=== PATIENT | female | born 1975 | race Caucasian/White ===

== ENCOUNTER 2016-07-09 06:57 | Emergency (ER) | payer OTHER ==
[~2016-07-09] VITALS: Ht 157.5 cm; Wt 55.0 kg
[~2016-07-09 06:57] MED LIST: ANTIVERT25 MG PO; BENTYL10 MG PO; CIPRO500 MG PO; CLONAZEPAM1 MG PO; DILAUDID2 MG PO; DITROPAN5 MG PO; ELMIRON100 MG PO; FIORICET; FIORICET 50-301 EACH PO; FLOVENT 11120 INHALA IH; HYDROCHLOROTHIA25 MG PO; HYDROCODON-ACE1 EAC7 PO; IMITREX; IMITREX50 MG PO; IMITREX6 MG/0.52 SC; INDERAL10 MG PO; KEFLEX500 MG PO; KLONOPIN0.5 M1 PO; LYRICA75 MG PO; MACROBID100 MG PO; NORCO 5/3251 TABLET PO; NSAID; PANTOPRAZOLE SO40 MG PO; PERCOCET 5/31 TABLET PO; PHENERGAN25 MG PR; PREDNISONE20 MG PO; PROAIR HFA8.5 GM IH; PROMETHAZINE HC50 M1 PO; PROVENTIL HFA6.7 GM IH; PROVENTIL,VENTOL2 MG PO; PYRIDIUM100 MG PO; REGLAN5 MG PO; SYMBICORT60 INHALAT IH; TOPAMAX100 MG PO; TORADOL10 MG PO; URIBEL CAPSULE1 EACH PO; ZITHROMAX Z-PA250 MG PO; ZOFRAN4 MG PO
[2016-07-09 08:05] LABS: BASOPHIL COUNT 0.1 K/uL (0-0.1); EOSINOPHIL (%) 1.2 % (0-5); EOSINOPHIL COUNT 0.1 K/uL (0-0.3); HEMATOCRIT 40.9 % (36.0-46.0); IMMATURE GRANULOCYTE (%) 0.4 % (0.0-0.7); INSTRUMENT ABS NEUTROPHIL CT 3.9 K/uL; LYMPHOCYTE COUNT 2.3 K/uL (1.0-2.8); MCH 29.5 PG (29.0-34.0); MCHC 34.5 G/DL (30.0-36.0); MCV 85.6 FL (83-99); MEAN PLAT.VOLUME 10.8 uM^3 (9.5-12.4); MONOCYTE (%) 8.3 % (3-12); MONOCYTE COUNT 0.6 K/uL (0-0.8); NEUTROPHIL (%) 56.4 % (45-76); NEUTROPHIL COUNT 3.9 K/uL (1.8-6.4); PLATELET COUNT 251 K/uL (156-360); RBC DIS.WIDTH-CV 12.5 % (11.8-14.6); RBC DIS.WIDTH-SD 38.9 % (39-53); RED BLOOD COUNT 4.78 M/uL (3.80-5.20); WHITE BLOOD COUNT 6.9 K/uL (4.1-10.2)
[2016-07-09 08:09] LABS: ADD MIUA? YES; BILIRUBIN NEGATIVE; BLOOD MODERATE; COLOR YELLOW ((YELLOW)); GLUCOSE (STRIP) NEGATIVE; KETONES NEGATIVE; LEUKOCYTES MODERATE; NITRITE NEGATIVE; PROTEIN (STRIP) 100; SPECIFIC GRAVITY 1.021 (1.000-1.030); UROBILINOGEN 0.2 MG/DL (0.2-1.0)
[2016-07-09 08:30] LABS: CHLORIDE 112 mEq/L (99-109)
[2016-07-09 08:31] LABS: POTASSIUM 2.7 mEq/L (3.7-5.4); SODIUM 138 mEq/L (136-147)
[2016-07-09 08:32] LABS: GLUCOSE 78 mg/dL (70-99)
[2016-07-09 08:34] LABS: ANION GAP 8 MEQ/L (2-14)
[2016-07-09 08:36] LABS: GFR ESTIMATE (CALCULATED) > 59 mL/min/
[2016-07-09 08:37] LABS: UREA NITROGEN (BUN) 8 mg/dL (9-23)
[2016-07-09 08:45] LABS: BACTERIA 1+ /HPF; CALCIUM OXALATE CRYSTALS NONE SEEN /HPF; CASTS PRESENT /LPF; CRYSTALS PRESENT; EPITHELIAL CELLS 1+ /HPF; HYALINE CASTS 0-5 /LPF; MUCUS 1+ /LPF
[2016-07-09] MEDS ORDERED: CIPRO500 MG PO (09:49)
[2016-07-09] MEDS ORDERED: K-DUR20 MEQ PO (09:49)
[2016-07-09] MEDS ORDERED: TYLENOL WITH C1 EACH PO (09:49)
[2016-07-09 10:02] VITALS: BP 105/64
== END 2016-07-09 10:03 | disposition home or self-care (01) ==
LOC: EME 06:57
PROVIDERS: Emergency Medicine
DX: N39.0 Urinary tract infection, site not specified (principal); E87.6 Hypokalemia; Z87.442 Personal history of urinary calculi; R56.9 Unspecified convulsions
CPT/HCPCS: 74176; 80048; 81003; 85025; 99281; 99284

== ENCOUNTER 2016-08-16 07:39 | Day surgery (SDC) | payer OTHER ==
[~2016-08-16] VITALS: Ht 157.5 cm; Wt 56.2 kg
[~2016-08-16 07:39] MED LIST changes: +CONCERTA36 MG PO; +IMITREX100 MG PO; +K-DUR20 MEQ PO; +KLONOPIN1 MG PO; +LORTAB 5-325 M1 EACH PO; +LYRICA150 MG PO; +TYLENOL WITH C1 EACH PO
== END 2016-08-16 09:25 | disposition home or self-care (01) ==
LOC: PAIN 07:39 → SDC 09:00 → PAIN 09:25
DX: M47.816 Spondylosis without myelopathy or radiculopathy, lumbar region (principal); F41.9 Anxiety disorder, unspecified; G89.29 Other chronic pain; M47.812 Spondylosis without myelopathy or radiculopathy, cervical region; R10.30 Lower abdominal pain, unspecified; I45.6 Pre-excitation syndrome
CPT/HCPCS: J1030; J2250; J3010; S0020

== ENCOUNTER 2016-08-23 07:41 | Day surgery (SDC) | payer OTHER ==
[~2016-08-23] VITALS: Ht 157.5 cm; Wt 56.2 kg
== END 2016-08-23 10:00 | disposition home or self-care (01) ==
LOC: PAIN 07:41 → SDC 09:00 → PAIN 10:00
DX: M47.816 Spondylosis without myelopathy or radiculopathy, lumbar region (principal); M54.5 Low back pain; G89.29 Other chronic pain; M47.812 Spondylosis without myelopathy or radiculopathy, cervical region; J44.9 Chronic obstructive pulmonary disease, unspecified; K21.9 Gastro-esophageal reflux disease without esophagitis; F41.9 Anxiety disorder, unspecified; Z86.73 Personal history of transient ischemic attack (TIA), and cerebral infarction without residual deficits
CPT/HCPCS: J1030; J2250; J3010; S0020

== ENCOUNTER 2016-12-03 08:32 | Day surgery (SDC) | payer OTHER ==
[2016-12-03] MEDS ORDERED: PROVENTIL,2.5 MG/3 M IH (09:24)
[2016-12-03] MEDS ORDERED: MOBIC15 MG PO (09:26)
[2016-12-03] MEDS ORDERED: ZOFRAN4 MG PO (09:26)
== END 2016-12-03 11:25 | disposition home or self-care (01) ==
LOC: PAIN 08:32 → SDC 09:30 → PAIN 09:30
PROC: 015B3ZZ Destruction of Lumbar Nerve, Percutaneous Approach (ICD-10-PCS; principal; 2016-12-03)
DX: M47.816 Spondylosis without myelopathy or radiculopathy, lumbar region (principal); M47.812 Spondylosis without myelopathy or radiculopathy, cervical region; G89.29 Other chronic pain; F41.9 Anxiety disorder, unspecified; F32.9 Major depressive disorder, single episode, unspecified; G43.909 Migraine, unspecified, not intractable, without status migrainosus
CPT/HCPCS: J1030; J2250; J3010; S0020

== ENCOUNTER 2016-12-17 08:32 | Day surgery (SDC) | payer OTHER ==
[~2016-12-17] VITALS: Ht 157.5 cm; Wt 56.2 kg
[~2016-12-17 08:32] MED LIST changes: +MOBIC15 MG PO; +PROVENTIL,2.5 MG/3 M IH
== END 2016-12-17 10:40 | disposition home or self-care (01) ==
LOC: PAIN 08:32 → SDC 09:30 → PAIN 10:40
DX: M47.816 Spondylosis without myelopathy or radiculopathy, lumbar region (principal); M54.5 Low back pain; G89.29 Other chronic pain; M47.812 Spondylosis without myelopathy or radiculopathy, cervical region; I10 Essential (primary) hypertension; I45.6 Pre-excitation syndrome; Z79.891 Long term (current) use of opiate analgesic
CPT/HCPCS: J1030; J2250; J3010; S0020

== ENCOUNTER 2017-01-10 07:12 | Day surgery (SDC) | payer OTHER ==
[~2017-01-10] VITALS: Ht 157.5 cm; Wt 57.2 kg
[~2017-01-10 07:12] MED LIST changes: +GAVISCON TABLE1 EACH PO; +MOTRIN600 MG PO
== END 2017-01-10 08:48 | disposition home or self-care (01) ==
LOC: PAIN 07:12 → SDC 08:00 → PAIN 08:00
DX: M47.814 Spondylosis without myelopathy or radiculopathy, thoracic region (principal); M54.6 Pain in thoracic spine; G89.29 Other chronic pain; M54.5 Low back pain; M47.816 Spondylosis without myelopathy or radiculopathy, lumbar region; M47.812 Spondylosis without myelopathy or radiculopathy, cervical region; I45.6 Pre-excitation syndrome; J44.9 Chronic obstructive pulmonary disease, unspecified; I25.2 Old myocardial infarction; I10 Essential (primary) hypertension; Z86.73 Personal history of transient ischemic attack (TIA), and cerebral infarction without residual deficits; Z79.891 Long term (current) use of opiate analgesic
CPT/HCPCS: 93005; J1030; J2250; J3010; S0020

== ENCOUNTER 2017-02-07 09:02 | Day surgery (SDC) | payer OTHER ==
[~2017-02-07] VITALS: Ht 157.5 cm; Wt 61.7 kg
[2017-02-07] MEDS ORDERED: DHEA (09:18)
[2017-02-07] MEDS ORDERED: POTASSIUM (09:20)
[2017-02-07 09:49] LABS: POINT-OF-CARE METER ID UU14174212
== END 2017-02-07 11:15 | disposition home or self-care (01) ==
LOC: PAIN 09:02 → SDC 10:00 → PAIN 10:00
PROVIDERS: Anesthesiology Pain Medicine
DX: M47.26 Other spondylosis with radiculopathy, lumbar region (principal); M54.5 Low back pain; G89.29 Other chronic pain; M53.3 Sacrococcygeal disorders, not elsewhere classified; M47.812 Spondylosis without myelopathy or radiculopathy, cervical region; M47.814 Spondylosis without myelopathy or radiculopathy, thoracic region; F41.8 Other specified anxiety disorders; I45.6 Pre-excitation syndrome; Z79.891 Long term (current) use of opiate analgesic
CPT/HCPCS: 82948; J1100

== ENCOUNTER 2017-02-12 06:12 | Day surgery (SDC) | payer OTHER ==
[~2017-02-12] VITALS: Ht 157.5 cm; Wt 61.7 kg
[~2017-02-12 06:12] MED LIST changes: +DHEA; +POTASSIUM
== END 2017-02-12 08:40 | disposition home or self-care (01) ==
LOC: PAIN 06:12 → SDC 07:00 → PAIN 08:40
DX: G97.1 Other reaction to spinal and lumbar puncture (principal); M47.816 Spondylosis without myelopathy or radiculopathy, lumbar region; M47.812 Spondylosis without myelopathy or radiculopathy, cervical region; M47.814 Spondylosis without myelopathy or radiculopathy, thoracic region; M54.5 Low back pain; G89.29 Other chronic pain; M53.3 Sacrococcygeal disorders, not elsewhere classified; F41.8 Other specified anxiety disorders; I45.6 Pre-excitation syndrome; J44.9 Chronic obstructive pulmonary disease, unspecified; I25.2 Old myocardial infarction; K21.9 Gastro-esophageal reflux disease without esophagitis
CPT/HCPCS: J2250; J3010

== ENCOUNTER 2017-03-12 09:54 | Day surgery (SDC) | payer OTHER ==
[~2017-03-12] VITALS: Ht 157.5 cm; Wt 61.7 kg
[2017-03-12] MEDS ORDERED: NORCO 10/3251 TABLET PO (10:08)
== END 2017-03-12 10:55 | disposition home or self-care (01) ==
LOC: PAIN 09:54 → SDC 11:00 → PAIN 11:00
PROC: 3E0R33Z Introduction of Anti-inflammatory into Spinal Canal, Percutaneous Approach (ICD-10-PCS; principal; 2017-03-12)
PROC: 3E0R3BZ Introduction of Anesthetic Agent into Spinal Canal, Percutaneous Approach (ICD-10-PCS; principal; 2017-03-12)
PROC: B01B1ZZ Fluoroscopy of Spinal Cord using Low Osmolar Contrast (ICD-10-PCS; principal; 2017-03-12)
DX: M47.26 Other spondylosis with radiculopathy, lumbar region (principal); M54.5 Low back pain; G89.29 Other chronic pain; M47.814 Spondylosis without myelopathy or radiculopathy, thoracic region; M47.812 Spondylosis without myelopathy or radiculopathy, cervical region; F41.9 Anxiety disorder, unspecified; M79.7 Fibromyalgia; M53.3 Sacrococcygeal disorders, not elsewhere classified; I45.6 Pre-excitation syndrome; Z79.891 Long term (current) use of opiate analgesic
CPT/HCPCS: J1100